=== PATIENT | female | born 1960 | race Caucasian/White ===

== ENCOUNTER 2020-01-13 13:59 | Outpatient (CLI) | payer OTHER, SELFPAY ==
--- NOTE | ~2020-01-13 | CT_ITS ---
EXAMINATION: CT lung screening EXAM DATE: 01/13/2020 15:11 INDICATION: Personal history of nicotine dependence. TECHNIQUE: Spiral low dose CT of the chest without contrast. Axial, coronal and sagittal images were reviewed. The dose-length product (DLP) for this examination was 88.06 mGy-cm. The exposure was ta ilored according to patient size (auto mA exposure control), and iterative reconstruction (ASIR) was used as additional dose reduction technique. There is no prior study for comparison. FINDINGS: There is mild emphysema. There is a nodule in the right lower lobe measuring 4 mm average dimension (3 x 5 mm). There is a 3 mm left upper lobe nodule, image 23. Minimal linear right middle l obe and lingular subsegmental atelectasis. Tracheobronchial tree is patent. There is no mediastina l, hilar or axillary lymphadenopathy. There are no pleural or pericardial effusions. There is no pneumothorax. Heart normal in size. There is mild to moderate coronary arterial calcification, ar terial sclerosis. There are cholecystectomy clips. There is thoracic spondylosis without osteoblasti c or osteolytic lesions identified. IMPRESSION: Lung-RADS category 2, benign appearance or behavior (<1% chance of malignancy); recommend continued LDCT screening in 1 year. Reviewed, dictated and finalized at location B. OPERATIONS
--- NOTE | ~2020-01-13 | MM_ITS ---
EXAMINATION: MM screening katerin BI w yaneth HISTORY: Screening mammogram TECHNIQUE: Craniocaudal and mediolateral oblique 3-D tomosynthesis images were obtained and synthetic 2-D images were generated. CAD analysis was submitted and interpreted. COMPARISON: No prior mammogram is available for comparison at this institution. BREAST PARENCHYMAL COMPOSITION: There are scattered areas of fibroglandular density. FINDINGS: There are scattered bilateral breast asymmetries and masses. There are benign calcification s in both breasts. IMPRESSION: 1. Bilateral scattered asymmetries/breast masses obscured by fibroglandular tissue. 2. Additional mammographic views and possible breast ultrasound are recommended. BI-RADS Category 0: Incomplete: Needs additional imaging evaluation. Reviewed, dictated and finalized at location A. UTER AIDE IMPRESSION: 1. Bilateral scattered asymmetries/breast masses obscured by fibroglandular tis keisha. 2. Additional mammographic views and possible breast ultrasound are recommended . BI-RADS Category 0: Incomplete: Needs additional imaging evaluation.
== END 2020-01-13 14:00 | disposition home or self-care (01) ==
LOC: ANHIMG 14:02
PROVIDERS: PCP Internal Medicine Gastroenterology; Visit Provider Internal Medicine Gastroenterology
DX: Z12.31 Encounter for screening mammogram for malignant neoplasm of breast (principal); R92.8 Other abnormal and inconclusive findings on diagnostic imaging of breast; Z12.2 Encounter for screening for malignant neoplasm of respiratory organs; Z87.891 Personal history of nicotine dependence
CPT/HCPCS: 77063; 77067; G0297

== ENCOUNTER 2020-02-10 13:02 | Outpatient (CLI) | payer OTHER, SELFPAY ==
--- NOTE | ~2020-02-10 | MMUS_ITS ---
EXAMINATION: MM diagnostic mammo BI, US breast BI complete HISTORY: Bilateral breast asymmetries or masses reported on screening mammogram of 01/13/2020 TECHNIQUE: Additional 3-D tomosynthesis images of both breasts were performed and synthetic 2-D image s were generated. CAD analysis was submitted and interpreted. High resolution bilateral complete carlos st ultrasound was performed. COMPARISON: 01/09/2020 bilateral digital screening mammogram FINDINGS: MAMMOGRAPHIC FINDINGS: Again noted is bilateral mammographic asymmetry. No reproducible suspicious mass is evident on the left. There are asymmetric densities in the medial, central and lateral left breast. ULTRASOUND: Right breast: Right axilla: 7.4 x 30 mm lymph node, largely fatty. Left breast: 12:00 4 cm from nipple: There appears to be a possible lymph node with irregular hypoech oic 7 x 7 mm mass with posterior shadowing; ultrasound-guided biopsy is recommended. At 9:00 3 cm from the nipple there is an antiparallel irregular heterogeneous hypoechoic solid mass n oted to 10 x 9.6 mm dimension, with posterior shadowing. Ultrasound-guided biopsy is recommended. IMPRESSION: 1. Suspicious shadowing irregular Breasts masses at 9:00 3 cm from nipple and 12:00 4 cm from nipple 2. Ultrasound-guided biopsy of the 2 suspicious masses of the left breast at 9:00 and 12:00 BI-RADS category 4, suspicious findings. Dr. Jeffries attempted to telephone the report and biopsy recommendation of the left breast on 02/10/2020, but was placed on hold multiple times for extremely long periods without the the call being answered . Additional telephone attempt will be made on 02/11/2020. Reviewed, dictated and finalized at location A. IMPRESSION: 1. Suspicious shadowing irregular Breasts masses at 9:00 3 cm from nipple and 12:00 4 cm from nipple 2. Ultrasound-guided biopsy of the 2 suspicious masses of the left breast at 9: 00 and 12:00 BI-RADS category 4, suspicious findings. Dr. Jeffries attempted to telephone the report and biopsy recommendation of the lef t breast on 02/10/2020, but was placed on hold multiple times for extremely long periods without the the call being answered. Additional telephone attempt will be made on 02/11/2020.
== END 2020-02-10 13:03 | disposition home or self-care (01) ==
PROVIDERS: PCP Internal Medicine Gastroenterology; Visit Provider Internal Medicine Gastroenterology
DX: R92.8 Other abnormal and inconclusive findings on diagnostic imaging of breast (principal)
CPT/HCPCS: 76641; 77066

== ENCOUNTER 2021-02-05 10:46 | Outpatient (CLI) | payer OTHER, SELFPAY ==
--- NOTE | ~2021-02-05 | MMUS_ITS ---
EXAMINATION: MM diagnostic katerin BI w yaneth, US breast LT limited HISTORY: Left breast mass. Previous biopsy requested on 02/10/2020. Patient delay biopsy due to Covid. TECHNIQUE: Additional 3-D tomosynthesis images of the breasts were performed and synthetic 2-D images were generated. CAD analysis was submitted and interpreted. High resolution Limited left breast ultr asound was performed. COMPARISON: 02/10/2020 BREAST PARENCHYMAL COMPOSITION: Breast composed of scattered areas of fibroglandular density. FINDINGS: MAMMOGRAPHIC FINDINGS: There are focal asymmetries in the upper central and upper outer quadrant of the left breast which ar e not significantly changed from prior study allowing for differences of technique. Left breast ultrasound: At 9:00, 3 cm from the nipple, there is an irregular shaped hypoechoic mass w ith posterior shadowing measuring approximately 7 x 7 x 7 mm. No internal vascularity. At 12:00, 4 cm from the nipple there is an enlarged irregular appearing lymph node measuring 2 cm maximum dimension , possibly pathologic. IMPRESSION: 1. Persistent irregular shaped hypoechoic mass of the left breast at 9:00, 3 cm from the nipple measu ring 9 mm. Enlarged intramammary lymph node at 12:00, 4 cm from the nipple. 2. Ultrasound-guided biopsy of each of these masses recommended. BI-RADS category 4, suspicious findings. Reviewed, dictated and finalized at location A. IMPRESSION: 1. Persistent irregular shaped hypoechoic mass of the left breast at 9:00, 3 cm from the nipple measuring 9 mm. Enlarged intramammary lymph node at 12:00, 4 c m from the nipple. 2. Ultrasound-guided biopsy of each of these masses recommended. BI-RADS category 4, suspicious findings.
== END 2021-02-05 10:47 | disposition home or self-care (01) ==
LOC: ANHIMG 10:48
PROVIDERS: PCP Internal Medicine Gastroenterology; Visit Provider Internal Medicine Gastroenterology
DX: N63.20 Unspecified lump in the left breast, unspecified quadrant (principal); R92.8 Other abnormal and inconclusive findings on diagnostic imaging of breast
CPT/HCPCS: 76642; 77062; 77066; G0279

== ENCOUNTER 2021-02-26 09:04 | Outpatient (CLI) | payer OTHER, SELFPAY ==
--- NOTE | ~2021-02-26 | MM_ITS ---
EXAMINATION: MM post biopsy invasive LT HISTORY: Post ultrasound-guided biopsy of 12:00 and 9:00 left breast lesions TECHNIQUE: ML and craniocaudal views of the left breast. COMPARISON: 03/08/2021 ultrasound-guided breast biopsy 02/05/2021ilateral diagnostic mammography and limited left breast ultrasound BREAST PARENCHYMAL COMPOSITION: There are scattered areas of fibroglandular density. FINDINGS: A biopsy marker is present in the upper mid left breast with biopsy of 12:00 lesion. There is a biopsy marker in the mid inner left breast consistent with ultrasound guided biopsy at 9:0 0 lesion. IMPRESSION: Status post ultrasound-guided biopsy of 12:00 and 9:00 lesions Reviewed, dictated and finalized at location A.
--- NOTE | ~2021-02-26 | US_ITS ---
US breast bx add lesion LT DATE: 02/26/2021 12:21 Please refer to 03/08/2021 left breast ultrasound-guided biopsy report. Reviewed, dictated and finalized at location A.
--- NOTE | ~2021-02-26 | US_ITS ---
EXAMINATION: US GUIDED NEEDLE BIOPSY DATE: 02/26/2021 10:25 CDT INDICATION: 9:00 and 12:00 sonographic breast masses. TECHNIQUE AND FINDINGS: The risks and potential benefits of the procedure were discussed with the patient, and written inform ed consent was obtained. Timeout procedure was performed. After sterile preparation of the left breas t, 1% lidocaine was utilized for local anesthesia. A 14G spring-loaded biopsy gun needle was advanced to the edge of the region of interest at 12:00 fro m a lateral approach and at the 9:00 lesion from a medial approach, utilizing sonographic guidance. A total of three tissue core samples were obtained through each lesion. An Inrad tissue marker clip was then placed at each biopsy site. Hemostasis was achieved. A sterile bandage was applied. The patient tolerated procedure well and there was no evidence of immediate complication. The patien t was given verbal instructions prior to departing from the department. A two view mammogram was perf ormed to document tissue marker clips placement. The tissue samples were submitted to surgical pathol ogy for histologic analysis. IMPRESSION: 1. Successful ultrasound guided biopsy of 12:00 and 9:00 breast hypoechoic masses with biopsy marker placement. Please refer to pathology report for histologic analysis. Reviewed, dictated and finalized at Location [facility]. Reviewed, dictated and finalized at location A. IMPRESSION: 1. Successful ultrasound guided biopsy of 12:00 and 9:00 breast hypoechoic mas ses with biopsy marker placement. Please refer to pathology report for histolog ic analysis.
== END 2021-02-26 09:05 | disposition home or self-care (01) ==
PROVIDERS: PCP Internal Medicine Gastroenterology; Visit Provider Internal Medicine Gastroenterology
DX: N63.20 Unspecified lump in the left breast, unspecified quadrant (principal)
CPT/HCPCS: 19083; 19084; 88305; A4648